=== PATIENT | female | born 1965 | race Caucasian/White ===

== ENCOUNTER 2018-05-07 10:13 | Day surgery (SDC) | payer OTHER ==
[~2018-05-07 10:13] MED LIST: DESFLURANE 15 MIN; NEOSTIGMINE 3 MG/3 ML SYRINGE
[2018-05-07 11:06] LABS: ADD MAN DIFF? NO
[2018-05-07 11:10] LABS: BASOPHIL # 0.1 10^3/ul (0.0-0.1); BASOPHILS % 1.3 % (0.0-2.0); EOSINOPHILS # 0.2 10^3/ul (0.0-0.5); EOSINOPHILS % 1.7 % (0.0-7.0); HEMOGLOBIN 11.9 g/dl (12.0-16.0); LYMPHOCYTES # 2.6 10^3/ul (0.8-2.9); LYMPHOCYTES % 26.9 % (15.0-51.0); MEAN CORPUSCULAR HEMOGLOBIN 25.5 pg (29.0-33.0); MEAN CORPUSCULAR HGB CONC 31.3 g/dl (32.0-37.0); MEAN CORPUSCULAR VOLUME 81.5 fl (82.0-101.0); MEAN PLATELET VOLUME 9.1 fl (7.4-10.4); MONOCYTE # 0.7 10^3/ul (0.3-0.9); MONOCYTES % 6.8 % (0.0-11.0); NEUTROPHIL # 6.1 10^3/ul (1.6-7.5); NEUTROPHILS % 62.5 % (39.0-77.0); PLATELET COUNT 366 10^3/UL (140-415); RED BLOOD COUNT 4.66 10^6/ul (4.20-5.40); RED CELL DISTRIBUTION WIDTH 14.4 % (11.5-14.5)
[2018-05-07 11:10] LABS: WHITE BLOOD COUNT 9.8 10^3/ul (4.8-10.8)
[2018-05-07 11:29] LABS: INR 0.86; PROTIME 11.8 Sec (11.9-14.9); PT RATIO 0.9
[2018-05-07 11:30] LABS: PARTIAL THROMBOPLASTIN TIME 30.2 Sec (23.0-35.0)
[2018-05-07 11:32] LABS: ALANINE AMINOTRANSFERASE 23 IU/L (13-69); ALBUMIN 4.3 g/dl (3.3-4.9); ALBUMIN/GLOBULIN RATIO 1.34; ALKALINE PHOSPHATASE 120 IU/L (42-121); ANION GAP 7 (5-13); ASPARTATE AMINO TRANSFERASE 24 IU/L (15-46); BILIRUBIN,INDIRECT 0.4 mg/dl (0-1.1); BILIRUBIN,TOTAL 0.4 mg/dl (0.2-1.3); BLOOD UREA NITROGEN 17 mg/dl (7-20); CALCIUM 9.9 mg/dl (8.4-10.2); CARBON DIOXIDE 31 mmol/L (21-31); CHLORIDE 103 mmol/L (97-110); CREATININE 0.77 mg/dl (0.44-1.00); Estimated GFR > 60 mL/min (>60); GLUCOSE 92 mg/dl (70-220); POTASSIUM 4.1 mmol/L (3.5-5.1); SODIUM 141 mmol/L (135-144); TOTAL PROTEIN 7.5 g/dl (6.1-8.1)
[2018-05-07] MEDS ORDERED: EPINEPHrine 0.1 MG/ML SYG (13:56)
[2018-05-07] MEDS ORDERED: TRIMETHOBENZAMIDE 100 MG/ML VIAL IM (15:00)
[2018-05-07] MEDS ORDERED: MIDAZOLAM 1 MG/ML 2 ML INJ IV (15:00)
[2018-05-07] MEDS ORDERED: IPRATROPIUM (NEB) 0.5 MG/2.5 ML AMP HHN (15:00)
[2018-05-07] MEDS ORDERED: FENTAnyl 50 MCG/ML VIAL IV ×3 (15:00)
[2018-05-07] MEDS ORDERED: MEPERIDINE 25 MG INJ IV (15:00)
[2018-05-07] MEDS ORDERED: ALBUTEROL 0.083% (NEB) 2.5 MG/3 ML AMP HHN (15:00)
[2018-05-07] MEDS ORDERED: ONDANSETRON 4 MG INJ IV (15:00)
[2018-05-07] MEDS ORDERED: LABETALOL HCL 20MG INJ IV (15:00)
[2018-05-07] MEDS ORDERED: OXYCODONE/ACETAMINOPHEN (5/325) TAB PO ×2 (15:00)
[2018-05-07] MEDS ORDERED: hydrALAzine 20 MG INJ IV (15:00)
[2018-05-07] MEDS ORDERED: EPHEDrine SULFATE 50 MG/5 ML SYG IV (15:00)
[2018-05-07] MEDS ORDERED: HYDROmorphONE 1 MG/5 ML IV SYRINGE IV (15:00)
[2018-05-07] MEDS ORDERED: DIPHENHYDRAMINE 50 MG INJ IV (15:00)
[2018-05-07] MEDS ORDERED: PROPOFOL 20 ML (15:05)
[2018-05-07] MEDS ORDERED: ONDANSETRON 4 MG INJ (15:05)
[2018-05-07] MEDS ORDERED: FENTAnyl 50 MCG/ML VIAL (15:05)
[2018-05-07] MEDS ORDERED: GLYCOPYRROLATE 0.4 MG INJ (15:05)
[2018-05-07] MEDS ORDERED: ROCURONIUM 50 MG INJ (15:05)
[2018-05-07] MEDS ORDERED: CEFAZOLIN 1 GM INJ (15:05)
[2018-05-07] MEDS ORDERED: MIDAZOLAM 1 MG/ML 2 ML INJ (15:05)
[2018-05-07] MEDS ORDERED: DEXAMETHASONE 4 MG/ML 5 ML INJ (15:05)
[2018-05-07] MEDS: BUPIVACAINE 0.5%/EPI (SDV) 30 ML INJ (15:55)
[2018-05-07] MEDS: HYDROmorphONE 1 MG/5 ML IV SYRINGE IV ×3 (16:11→16:28)
== END 2018-05-07 14:45 | disposition home or self-care (01) ==
LOC: SDS 10:13
DX: M23.8X1 Other internal derangements of right knee (principal); S83.231D Complex tear of medial meniscus, current injury, right knee, subsequent encounter; S83.281D Other tear of lateral meniscus, current injury, right knee, subsequent encounter; X58.XXXD Exposure to other specified factors, subsequent encounter; I10 Essential (primary) hypertension; G47.30 Sleep apnea, unspecified
CPT/HCPCS: 29880; 71045; 80053; 84703; 85025; 85610; 85730